=== PATIENT | female | born 1995 | race Caucasian/White ===

== ENCOUNTER 2021-01-07 04:11 | Inpatient (IN) ==
[2021-01-07] MEDS ORDERED: Naloxone 0.4 MG/ML INJ IVP PRN ×2 (04:15→08:43)
[2021-01-07] MEDS ORDERED: Lidocaine 1% 20 ML MDV INFILT PRN (04:15)
[2021-01-07] MEDS ORDERED: Metoclopramide 10 MG/2 ML VIAL IVP PRN (04:15)
[2021-01-07] MEDS ORDERED: Ringers Solution, Lactated 1,000 ML IVC SCH (04:15)
[2021-01-07] MEDS ORDERED: Famotidine 20 MG/2 ML VIAL IVP PRN (04:15)
[2021-01-07] MEDS ORDERED: Oxytocin 20 units/ LR 1000 mL 20 UNIT/1,000 ML BAG IVC SCH ×2 (04:30→15:08)
[2021-01-07 05:13] LABS: Basophils # 0.1 K/mcL (0.0-0.2); Basophils % 0.4 %; Eosinophils # 0.1 K/mcL (0.0-0.6); Eosinophils % 0.8 %; Hematocrit 38.6 % (35.3-44.9); Hemoglobin 12.6 g/dL (11.5-15.4); Immature Granulocytes % 2.7 % (0-4); Lymphocytes # 2.4 K/mcL (0.6-4.6); Lymphocytes % 18.4 %; Mean Corpuscular HGB Conc 32.6 g/dL (31.6-35.5); Mean Corpuscular Hemoglobin 29.6 pg (28.0-33.3); Mean Corpuscular Volume 90.6 fL (83.0-100.0); Mean Platelet Volume 10.4 fL (9.4-12.4); Monocytes % 7.5 %; Neutrophils # 8.9 K/mcL (1.6-8.9); Platelet Count 181 K/mcL (140-400); Red Blood Count 4.26 M/mcL (3.82-4.97); Red Cell Distribution Width 14.1 % (11.5-14.5); Segmented Neutrophils % 70.2 %; White Blood Count 12.7 K/mcL (4.3-11.1)
[2021-01-07 05:15] LABS: Amphetamine Screen,Urine Negative ng/mL (Cutoff=1000); Barbiturate Screen,Urine Negative ng/mL (Cutoff=200); Benzodiazepines Screen,Urine Negative ng/mL (Cutoff=200); Cannabinoid Screen,Urine Negative ng/mL (Cutoff = 50); Cocaine Screen,Urine Negative ng/mL (Cutoff= 300); Opiate Screen,Urine Negative ng/mL (Cutoff=300); Phencyclidine Screen,Urine Negative ng/mL (Cutoff=25)
[2021-01-07 05:40] LABS: Influenza A PCR Negative (Negative); Influenza B PCR Negative (Negative); Resp. Syncytial Virus PCR Negative (Negative)
[2021-01-07 05:41] LABS: SARS-CoV-2 by PCR (In House) Negative (Negative)
[2021-01-07] MEDS ORDERED: Ropivacaine/PF 0.2% 20 ML VIAL ONE (07:53)
[2021-01-07] MEDS ORDERED: *HR* FentaNYL (PF) 100 MCG/2 ML VIAL EP ONE (08:43)
[2021-01-07] MEDS ORDERED: EPHEDrine 50 MG/ML VIAL IVP PRN (08:43)
[2021-01-07] MEDS ORDERED: Ropivacaine/PF 0.2% 20 ML VIAL EP ONE (08:43)
[2021-01-07] MEDS ORDERED: Ondansetron 4 MG/2 ML VIAL IVP PRN (08:43)
[2021-01-07] MEDS ORDERED: Epidural Premix (fent/bupiv) 110 ML EP SCH (08:45)
[2021-01-07] MEDS ORDERED: Rho Immune Globulin 1,500 UNIT SYRINGE IM PRN (15:08)
[2021-01-07] MEDS ORDERED: Lanolin 7 G OINT...G. TP PRN (15:08)
[2021-01-07] MEDS ORDERED: *HR* OxyCODONE Immed Rel 5 MG TABLET PO PRN (15:08)
[2021-01-07] MEDS ORDERED: Ondansetron ODT 4 MG TAB.RAPDIS SL PRN (15:08)
[2021-01-07] MEDS ORDERED: Benzocaine/Menthol 56 GM AEROSOL SPRAY TP PRN (15:08)
[2021-01-07] MEDS: Ibuprofen 600 MG TABLET PO SCH ×2 (15:19→21:31)
[2021-01-07] MEDS: Acetaminophen 325 MG TABLET PO SCH ×2 (15:19→21:31)
[2021-01-07] MEDS: Pramoxine 15 GM FOAM Package TP SCH ×2 (16:24→21:30)
[2021-01-07 17:46] VITALS: O2SAT 98
[2021-01-08 06:36] LABS: Basophils % 0.3 %; Eosinophils # 0.1 K/mcL (0.0-0.6); Hemoglobin 8.8 g/dL (11.5-15.4); Immature Granulocytes % 2.4 % (0-4); Lymphocytes # 3.7 K/mcL (0.6-4.6); Lymphocytes % 26.7 %; Mean Corpuscular HGB Conc 32.6 g/dL (31.6-35.5); Mean Corpuscular Hemoglobin 30.2 pg (28.0-33.3); Mean Corpuscular Volume 92.8 fL (83.0-100.0); Mean Platelet Volume 10.8 fL (9.4-12.4); Monocytes # 1.1 K/mcL (0.0-1.3); Monocytes % 7.8 %; Neutrophils # 8.6 K/mcL (1.6-8.9); Platelet Count 163 K/mcL (140-400); Red Blood Count 2.91 M/mcL (3.82-4.97); Red Cell Distribution Width 14.1 % (11.5-14.5); Segmented Neutrophils % 61.8 %; White Blood Count 13.9 K/mcL (4.3-11.1)
[2021-01-08 07:45] VITALS: BP 102/54; TEMP 98.4
[2021-01-08] MEDS: Ibuprofen 600 MG TABLET PO SCH (08:44)
[2021-01-08] MEDS: Acetaminophen 325 MG TABLET PO SCH (08:44)
[2021-01-08] MEDS ORDERED: Prenatal Vit/FA 1 EACH TABLET PO SCH (09:00)
[2021-01-08 12:33] VITALS: PULSE 76
== END 2021-01-08 12:30 | disposition home or self-care (01) | DRG 560 ==
LOC: 1NENULAB 04:11 → 1NENUOBS 15:07
PROVIDERS: ADMIT Obstetrics & Gynecology; ATTEND Obstetrics & Gynecology